=== PATIENT | female | born 1995 | race Caucasian/White ===

== ENCOUNTER 2019-01-26 15:56 | Emergency (ER) | payer SELFPAY ==
[2019-01-26 16:12] VITALS: BP 120/69
--- NOTE | 2019-01-26 17:10 | ER Document Report ---
ED Medical Screen (RME) - General Chief Complaint: STD Exposure Stated Complaint: POSSIBLE STD EXPOSURE Time Seen by Provider: 01/26/19 16:59 Mode of Arrival: Ambulatory Information source: Patient - HPI Patient complains to provider of: NEEDS STD TESTING Notes: 01/26/19 17:09 Patient here with complaints of needing STD testing. The patient states that she had sex for the first time in 5 years a week ago. And 2 days ago she had intercourse with a new partner. She states that the new partner developed a rash on his penis and she is now freaking out. She denies any rash or abnormal discharge. No fever. No abdominal pain. No nausea, vomiting, she states she is also having a panic attack because she is so stressed out about the whole situation. Exam Nontoxic, no distress. Lungs clear and equal throughout. Heart sounds normal. No abdominal tenderness on limited triage abdominal exam. Plan GC, chlamydia, wet prep, urine, urine . Patient will need pelvic exam. An initial examination was made on the patient as part of the triage process, and it was determined a more comprehensive evaluation was necessary. Initial labs were ordered and patient was transferred to another provider in the ED who assumed care and finished evaluation and plan. - Related Data Allergies/Adverse Reactions: Penicillins Allergy (Verified 01/26/19 16:01) Physical Exam - Vital signs Vitals: Temp Pulse Resp BP Pulse Ox 98.3 F 90 16 120/69 100 01/26/19 16:11 01/26/19 16:11 01/26/19 16:11 01/26/19 16:11 01/26/19 16:11 Course - Vital Signs Vital signs: Temp Pulse Resp BP Pulse Ox 98.3 F 90 16 120/69 100 01/26/19 16:11 01/26/19 16:11 01/26/19 16:11 01/26/19 16:11 01/26/19 16:11
[2019-01-26] MEDS ORDERED: HYDROXYZINE PAMOATE 25 MG CAPSULE PO ONE (17:11)
[2019-01-26 18:07] LABS: APPEARANCE,URINE SLIGHTLY-CLOUDY; BILIRUBIN,URINE NEGATIVE (NEGATIVE); COLOR,URINE YELLOW; GLUCOSE, URINE NEGATIVE (NEGATIVE); KETONES,URINE TRACE mg/dL (NEGATIVE); LEUKOCYTE ESTERASE,URINE NEGATIVE (NEGATIVE); NITRITE,URINE NEGATIVE (NEGATIVE); PROTEIN,URINE NEGATIVE (NEGATIVE); URINE SPECIFIC GRAVITY 1.027; UROBILINOGEN,URINE NEGATIVE mg/dL (<2.0)
[2019-01-26 19:17] LABS: CHLAM PCR NOT DETECTED (NOT DETECT); GON PCR NOT DETECTED (NOT DETECT)
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
== END 2019-01-26 21:33 | disposition home or self-care (01) ==
LOC: ER 15:56
DX: Z20.2 Contact with and (suspected) exposure to infections with a predominantly sexual mode of transmission (principal); Z88.0 Allergy status to penicillin
CPT/HCPCS: 81001; 81025; 87491; 87591; 99283

== ENCOUNTER 2019-09-21 14:09 | Emergency (ER) | payer OTHER ==
[2019-09-21] MEDS ORDERED: KETOROLAC TROMETHAMINE INJ/PF 30 MG/1 ML SDV IV ONE (15:46)
[2019-09-21] MEDS ORDERED: ONDANSETRON HCL INJ/PF 4 MG/2 ML SDV IV ONE (15:46)
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
[2019-09-21 16:21] LABS: ABSOLUTE LYMPHOCYTES (AUTO) 1.4 10^3/uL (0.5-4.7); ABSOLUTE MONOCYTES (AUTO) 0.6 10^3/uL (0.1-1.4); BASOPHILS % (AUTO) 0.6 % (0-2); EOSINOPHILS % (AUTO) 0.1 % (0-6); HEMATOCRIT 40.2 % (36.0-47.0); HEMOGLOBIN 14.1 g/dL (12.0-15.5); LYMPHOCYTES % (AUTO) 17.8 % (13-45); MEAN CORPUSCULAR HGB CONC 35.1 g/dL (32.0-36.0); MEAN CORPUSCULAR VOLUME 88 fl (80-97); PLATELET COUNT 298 10^3/uL (150-450); RED BLOOD COUNT 4.56 10^6/uL (3.72-5.28); RED CELL DISTRIBUTION WIDTH 12.8 % (11.5-14.0); SEGMENTED NEUTROPHILS % (AUTO) 74.5 % (42-78); TOTAL CELLS COUNTED % (AUTO) 100 %; WHITE BLOOD COUNT 8.1 10^3/uL (4.0-10.5)
[2019-09-21 16:38] LABS: ALKALINE PHOSPHATASE 57 U/L (38-126); ANION GAP 13 (5-19); ASPARTATE AMINO TRANSFERASE 20 U/L (14-36); BILIRUBIN,DIRECT 0.1 mg/dL (0.0-0.4); BILIRUBIN,TOTAL 1.4 mg/dL (0.2-1.3); BLOOD UREA NITROGEN 11 mg/dL (7-20); CALCIUM 9.8 mg/dL (8.4-10.2); CARBON DIOXIDE 26 mmol/L (22-30); CHLORIDE 103 mmol/L (98-107); GLUCOSE 90 mg/dL (75-110); POTASSIUM 3.9 mmol/L (3.6-5.0); TOTAL PROTEIN 8.2 g/dL (6.3-8.2)
[2019-09-21 16:43] LABS: APPEARANCE,URINE CLOUDY; BILIRUBIN,URINE NEGATIVE (NEGATIVE); GLUCOSE, URINE NEGATIVE (NEGATIVE); KETONES,URINE NEGATIVE (NEGATIVE); LEUKOCYTE ESTERASE,URINE MODERATE (NEGATIVE); NITRITE,URINE NEGATIVE (NEGATIVE); PROTEIN,URINE 100 mg/dL (NEGATIVE); URINE SPECIFIC GRAVITY 1.023; UROBILINOGEN,URINE NEGATIVE mg/dL (<2.0)
[2019-09-21] MEDS ORDERED: DIAZEPAM 5 MG TABLET PO ONE (16:45)
[2019-09-21 16:46] LABS: COLOR,URINE PINK
--- NOTE | 2019-09-21 20:00 | RADIOLOGY REPORT (SQ) ---
EXAM DESCRIPTION: U/S NON OB PEL TV W/DOPPLER COMPLETED DATE/TIME: 09/21/2019 7:22 pm REASON FOR STUDY: Pelvic pain, abnormal vaginal bleeding and dischar COMPARISON: None. TECHNIQUE: Dynamic and static grayscale images acquired of the pelvis via transvaginal approach and recorded on PACS. Additional selected color Doppler and spectral images recorded. LIMITATIONS: None. FINDINGS: UTERUS: Contour normal. No mass. ENDOMETRIAL STRIPE: No focal or generalized thickening. No masses. CERVIX: 4 mm nabothian cyst. RIGHT OVARY AND DOPPLER: Normal size. No worrisome masses. Normal arterial vascular flow without evid ence for torsion. LEFT OVARY AND DOPPLER: Normal size. No worrisome masses. Normal arterial vascular flow without evide nce for torsion. FREE FLUID: None noted. OTHER: No other significant finding. MEASUREMENTS: UTERUS: 7.5 x 3.9 x 5.2 cm ENDOMETRIAL STRIPE: 9 mm RIGHT OVARY: 2.5 x 2.3 x 1.7 cm LEFT OVARY: 3.1 x 2.7 x 1.7 cm IMPRESSION: No significant findings.Normal arterial vascular flow without evidence for torsion. TECHNICAL DOCUMENTATION: JOB ID: [id number]- All Rights Reserved Rev-02/03 Reading location - IP/workstation name: [email or web address]
[2019-09-21] MEDS ORDERED: CEFTRIAXONE 1 GM/D5W RTU 1 GM/50 ML RTUPB IV ONE (20:12)
[2019-09-21] MEDS ORDERED: BUTALB/ACETAMINOPHEN/CAFFEINE 1 TAB EACH PO ONE (20:13)
--- NOTE | 2019-09-21 20:16 | ER Document Report ---
ED GI/ - General Chief Complaint: Abdominal Pain Stated Complaint: ABDOMINAL PAIN/FEVER/POSSIBLE CYST Time Seen by Provider: 09/21/19 15:37 Primary Care Provider: [facility] [Provider Group] - Follow up as needed Mode of Arrival: Ambulatory Information source: Patient Notes: Patient presents stating that she was 16 days late on her menstrual cycle and then started her period yesterday. Patient states that she did have some dizziness earlier that has since resolved. Patient complains of lower pelvic tenderness with nausea and headache. Patient denies any vomiting. Patient states that she does have irregular menses. Patient denies any concerns about sexually transmitted infection TRAVEL OUTSIDE OF THE [place] IN LAST 30 DAYS: No - HPI Patient complains to provider of: Pelvic pain, Vaginal bleeding. No: , Vaginal discharge Onset: Yesterday Timing/Duration: Persistent Quality of pain: Achy Pain Level: 3 Vaginal bleeding (Compared to normal period): Similar Menstrual period history: denies: Sexual history: Active Associated symptoms: Nausea. denies: Fever, Urinary hesitancy, Urinary frequency, Urinary retention, Urinary urgency, Vaginal discharge, Vomiting Exacerbated by: Denies Relieved by: Denies Similar symptoms previously: No - Related Data Allergies/Adverse Reactions: Penicillins Allergy (Verified 09/21/19 15:36) Past Medical History - General Information source: Patient - Social History Smoking Status: Never Smoker Chew tobacco use (# tins/day): No Frequency of alcohol use: Occasional Drug Abuse: None Occupation: Retail Lives with: Spouse/Significant other Family History: Reviewed & Not Pertinent Patient has suicidal ideation: No Patient has homicidal ideation: No Pulmonary Medical History: Reports: Hx Pneumonia Neurological Medical History: Reports: Hx Migraine GI Medical History: Reports: Hx Endoscopy Musculoskeletal Medical History: Reports Hx Musculoskeletal Trauma Psychiatric Medical History: Reports: Hx Anxiety Traumatic Medical History: Reports: Hx Fractures - Thumb and nose Past Surgical History: Reports: Hx Appendectomy, Hx Thyroid Surgery - para thyroid Review of Systems - Review of Systems Constitutional: No symptoms reported. denies: Fever, Recent illness EENT: No symptoms reported Cardiovascular: No symptoms reported. denies: Chest pain Respiratory: No symptoms reported. denies: Cough, Short of breath Gastrointestinal: Abdominal pain, Nausea. denies: Vomiting Genitourinary: No symptoms reported Female Genitourinary: Vaginal bleeding. denies: Vaginal discharge Musculoskeletal: No symptoms reported. denies: Back pain Skin: No symptoms reported Hematologic/Lymphatic: No symptoms reported Neurological/Psychological: No symptoms reported Physical Exam - Vital signs Vitals: Temp Pulse Resp BP Pulse Ox 99.0 F 93 18 102/61 100 09/21/19 15:36 09/21/19 15:36 09/21/19 15:36 09/21/19 15:36 09/21/19 15:36 - General General appearance: Appears well, Alert In distress: None - HEENT Head: Normocephalic, Atraumatic Eyes: Normal Conjunctiva: Normal Nasal: Normal Mouth/Lips: Normal Mucous membranes: Normal Neck: Normal, Supple. No: Lymphadenopathy, Meningismus - Respiratory Respiratory status: No respiratory distress Chest status: Nontender Breath sounds: Normal. No: Rales, Rhonchi, Stridor, Wheezing Chest palpation: Normal - Cardiovascular Rhythm: Regular Heart sounds: S1 appreciated, S2 appreciated Murmur: No - Abdominal Inspection: Normal Distension: No distension Bowel sounds: Normal Tenderness: Tender - lower pelvic, suprapubic Organomegaly: No organomegaly - Back Back: Normal, Nontender. No: CVA tenderness - Extremities General upper extremity: Normal inspection, Normal strength General lower extremity: Normal inspection, Normal strength - Neurological Neuro grossly intact: Yes Cognition: Normal [place] Coma Scale Eye Opening: Spontaneous [place] Coma Scale Verbal: Oriented [place] Coma Scale Motor: Obeys Commands [place] Coma Scale Total: 15 - Psychological Associated symptoms: Normal affect, Normal mood - Skin Skin Temperature: Warm Skin Moisture: Dry Skin Color: Normal Course - Re-evaluation Re-evalutation: 09/21/19 20:14 Patient presents with lower pelvic tenderness. Ultrasound reviewed, no acute findings no concern for torsion or TOA. No concern for . With previous history of appendectomy, no concern concern for acute appendicitis. Patient denies any concerns about STI. Patient with UTI and dysmenorrhea at this time. Will treat for UTI with IV Rocephin and start patient on oral antibiotics. Patient also complains of headache pain. The patient presents with headache without signs of [employer] bleed, stroke, infection, or other serious etiology. The patient is neurologically intact. Given the extremely low risk of these diagnoses further testing and evaluation for these possibilities does not appear to be indicated at this time. The patient has been instructed to return if the symptoms worsen or change in any way. - Vital Signs Vital signs: Temp Pulse Resp BP Pulse Ox 98.2 F 82 16 103/66 100 09/21/19 21:16 09/21/19 21:16 09/21/19 21:16 09/21/19 21:16 09/21/19 21:16 - Laboratory Result Diagrams: 09/21/19 16:08 09/21/19 16:08 Laboratory results interpreted by me: 09/21/19 09/21/19 16:08 16:08 Total Bilirubin 1.4 H Urine Protein 100 H Urine Blood LARGE H Ur Leukocyte Esterase MODERATE H 09/22/19 00:11 Labs- Entire Visit 09/21/19 09/21/19 09/21/19 16:08 16:08 16:08 WBC 8.1 RBC 4.56 Hgb 14.1 Hct 40.2 MCV 88 MCH 31.0 MCHC 35.1 RDW 12.8 Plt Count 298 Lymph % (Auto) 17.8 [place] % (Auto) 7.0 Eos % (Auto) 0.1 Baso % (Auto) 0.6 Absolute Neuts (auto) 6.0 Absolute Lymphs (auto) 1.4 Absolute Monos (auto) 0.6 Absolute Eos (auto) 0.0 Absolute Basos (auto) 0.0 Seg Neutrophils % 74.5 Sodium 141.7 Potassium 3.9 Chloride 103 Carbon Dioxide 26 Anion Gap 13 BUN 11 Creatinine 0.56 Est GFR ( Amer) > 60 Est GFR (MDRD) Non-Af > 60 Glucose 90 Calcium 9.8 Total Bilirubin 1.4 H Direct Bilirubin 0.1 Neonat Total Bilirubin Not Reportable Neonat Direct Bilirubin Not Reportable Neonat Indirect Bili Not Reportable AST 20 ALT 12 Alkaline Phosphatase 57 Total Protein 8.2 Albumin 5.0 Urine Color PINK Urine Appearance CLOUDY Urine pH 6.0 Ur Specific [place] 1.023 Urine Protein 100 H Urine Glucose (UA) NEGATIVE Urine Ketones NEGATIVE Urine Blood LARGE H Urine Nitrite NEGATIVE Urine Bilirubin NEGATIVE Urine Urobilinogen NEGATIVE Ur Leukocyte Esterase MODERATE H Urine WBC (Auto) 51 Urine RBC (Auto) >182 Squamous Epi Cells Auto 8 Urine Mucus (Auto) MANY Urine Ascorbic Acid NEGATIVE Urine HCG, Qual NEGATIVE - Diagnostic Test Radiology reviewed: Reports reviewed Discharge - Discharge Clinical Impression: Dysmenorrhea UTI (urinary tract infection) Qualifiers: Urinary tract infection type: site unspecified Hematuria presence: with h ematuria Qualified Code(s): N39.0 - Urinary tract infection, site not specified Headache Qualifiers: Headache type: unspecified Headache chronicity pattern: unspecified pattern Intractability: not intractable Qualified Code(s): R51 - Headache Condition: Stable Disposition: HOME, SELF-CARE Instructions: Anti-Inflammatory Medication ([facility]), Cephalexin ([facility]), Dysmenorrhea ([facility]), Headache ([facility]), Urinary Tract Infection ([facility]) Additional Instructions: Return immediately for any new or worsening symptoms Followup with your primary care provider, call tomorrow to make a followup appointment Prescriptions: Cephalexin Monohydrate [Keflex 500 mg Capsule] 500 mg PO BID 5 Days capsule Naproxen [Naprosyn 250 Nmg Tablet] 1 tab PO BID #14 tablet Promethazine HCl [Phenergan 25 mg Tablet] 25 mg PO Q6H PRN #10 tablet PRN Reason: Forms: Return to Work Referrals: [facility] [Provider Group] - Follow up as needed
[2019-09-21 21:15] VITALS: BP 103/66
== END 2019-09-21 21:16 | disposition home or self-care (01) ==
LOC: ER 14:09
DX: N39.0 Urinary tract infection, site not specified (principal); N94.6 Dysmenorrhea, unspecified; R51 Headache; R10.9 Unspecified abdominal pain; R50.9 Fever, unspecified; R42 Dizziness and giddiness; R10.2 Pelvic and perineal pain; N93.9 Abnormal uterine and vaginal bleeding, unspecified; R11.0 Nausea
CPT/HCPCS: 99284; 96375; 96365; 36415; 87086; 85025; 81025; 80053; 81001; 76830; 93976; J3490; J1885; J2405; J0696

== ENCOUNTER 2019-09-26 05:20 | Emergency (ER) | payer OTHER ==
[2019-09-26 08:13] LABS: ABSOLUTE EOSINOPHILS # (AUTO) 0.1 10^3/uL (0.0-0.6); ABSOLUTE LYMPHOCYTES (AUTO) 2.1 10^3/uL (0.5-4.7); ABSOLUTE MONOCYTES (AUTO) 0.4 10^3/uL (0.1-1.4); BASOPHILS % (AUTO) 0.5 % (0-2); EOSINOPHILS % (AUTO) 1.1 % (0-6); HEMOGLOBIN 13.5 g/dL (12.0-15.5); LYMPHOCYTES % (AUTO) 36.9 % (13-45); MEAN CORPUSCULAR HEMOGLOBIN 30.5 pg (27.0-33.4); MEAN CORPUSCULAR HGB CONC 34.7 g/dL (32.0-36.0); MEAN CORPUSCULAR VOLUME 88 fl (80-97); PLATELET COUNT 278 10^3/uL (150-450); RED BLOOD COUNT 4.44 10^6/uL (3.72-5.28); RED CELL DISTRIBUTION WIDTH 12.8 % (11.5-14.0); SEGMENTED NEUTROPHILS % (AUTO) 53.5 % (42-78); TOTAL CELLS COUNTED % (AUTO) 100 %; WHITE BLOOD COUNT 5.6 10^3/uL (4.0-10.5)
[2019-09-26] MEDS ORDERED: FENTANYL CITRATE INJ/PF 100 MCG/2 ML AMPUL IV ONE (08:27)
[2019-09-26 08:29] LABS: ALBUMIN 4.3 g/dL (3.5-5.0); ALKALINE PHOSPHATASE 60 U/L (38-126); ANION GAP 9 (5-19); ASPARTATE AMINO TRANSFERASE 19 U/L (14-36); BILIRUBIN,DIRECT 0.2 mg/dL (0.0-0.4); BILIRUBIN,TOTAL 0.5 mg/dL (0.2-1.3); BLOOD UREA NITROGEN 16 mg/dL (7-20); CALCIUM 9.1 mg/dL (8.4-10.2); CARBON DIOXIDE 30 mmol/L (22-30); CHLORIDE 103 mmol/L (98-107); GLUCOSE 92 mg/dL (75-110); POTASSIUM 4.2 mmol/L (3.6-5.0); TOTAL PROTEIN 7.5 g/dL (6.3-8.2)
[2019-09-26] MEDS ORDERED: CEFTRIAXONE INJ 250 MG VIAL IM ONE (08:31)
[2019-09-26] MEDS ORDERED: AZITHROMYCIN 1 GM SUSP PACKET PO ONE (08:31)
[2019-09-26] MEDS ORDERED: LIDOCAINE 1% INJ-PF (10 MG/ML) 30 ML SDV NEB ONE (08:31)
--- NOTE | 2019-09-26 08:34 | ER Document Report ---
ED GI/ - General Chief Complaint: Lower Abdominal Pain Stated Complaint: POSSIBLE UTI Time Seen by Provider: 09/26/19 07:48 Information source: Patient Notes: HPI: 24-year-old female that presents today stating around 2 weeks ago she had sexual intercourse that was painful. She proceeded to have intercourse 2 more times over the week becoming progressively more painful. She had a low-grade fever 1 week ago with some pelvic pain and vomiting. She was seen here and evaluated for the possibility of urinary tract infection and started on Keflex. Pelvic examination was performed. Transvaginal ultrasound showed no obvious ovarian pathology. Patient does not have an appendix. She states over the last few days that the pain in the vaginal region has increased. She denies any discharge. She states it is extremely painful to pee but also to sit and to walk. She believes she may have lesions to the vaginal mucosa. ROS: See HPI All other review of systems reviewed and otherwise negative Reviewed vital signs and nursing note as charted by RN. PHYSICAL EXAM: CONSTITUTIONAL: Alert and oriented and responds appropriately to questions. Well-appearing; well-nourished HEAD: Normocephalic; atraumatic EYES: PERRL; Conjunctivae clear, sclerae non-icteric ENT: No intraoral lesions present NECK: Supple without meningismus; non-tender; no cervical lymphadenopathy, no masses CARD: Regular rate and rhythm; no murmurs; symmetric distal pulses RESP: Normal chest excursion without splinting or tachypnea; breath sounds clear and equal bilaterally ABD/GI: Normal bowel sounds; non-distended; soft, no tenderness to the abdominal examination to all 4 quadrants GI/: With highway traffic control technician present I did perform a pelvic examination. Patient has multiple lesions to the external mucosa of the vaginal wall. Patient will not allow me to perform a speculum examination given the pain. The external examina tion was performed after fentanyl had been given secondary to the pain BACK: The back appears normal and is non-tender to palpation EXT: Normal ROM in all joints; non-tender to palpation; no edema SKIN: No acute lesions noted NEURO: CN 2-12 intact; 5/5 bilateral upper and lower extremity strength with sensation intact to light touch PSYCH: The patient's mood and manner are appropriate. Grooming and personal hygiene are appropriate. TRAVEL OUTSIDE OF THE [place] IN LAST 30 DAYS: No - Related Data Allergies/Adverse Reactions: Penicillins Allergy (Verified 09/21/19 15:36) Home Medications: Keflex Past Medical History - Social History Smoking Status: Never Smoker Family History: Reviewed & Not Pertinent Patient has suicidal ideation: No Patient has homicidal ideation: No Pulmonary Medical History: Reports: Hx Pneumonia Neurological Medical History: Reports: Hx Migraine GI Medical History: Reports: Hx Endoscopy Musculoskeletal Medical History: Reports Hx Musculoskeletal Trauma Psychiatric Medical History: Reports: Hx Anxiety Traumatic Medical History: Reports: Hx Fractures - Thumb and nose Past Surgical History: Reports: Hx Appendectomy, Hx Thyroid Surgery - para thyroid Physical Exam - Vital signs Vitals: Temp Pulse Resp BP Pulse Ox 98.8 F 77 16 100/62 100 09/26/19 05:53 09/26/19 05:53 09/26/19 05:53 09/26/19 05:53 09/26/19 05:53 Course - Re-evaluation Re-evalutation: 09/26/19 08:34 Given the above history and physical, with ultrasound last week, with external lesions present, sexually active, I do believe that the patient most likely is suffering from a herpes outbreak. We will treat for herpes as well as chlamydia/gonorrhea and send a syphilis test. 09/26/19 08:49 Patient has refused internal vaginal examination. I will treat accordingly for chlamydia, gonorrhea, and herpes and send an RPR. - Vital Signs Vital signs: Temp Pulse Resp BP Pulse Ox 98.8 F 77 16 100/62 100 09/26/19 05:53 09/26/19 05:53 09/26/19 05:53 09/26/19 05:53 09/26/19 05:53 - Laboratory Result Diagrams: 09/26/19 07:47 09/26/19 07:47 Laboratory results interpreted by me: 09/26/19 07:47 Creatinine 0.51 L Discharge - Discharge Clinical Impression: Herpes simplex virus (HSV) infection of vagina Condition: Good Disposition: HOME, SELF-CARE Additional Instructions: Come back immediately for any increased pain, inability urinate, fevers or vomiting, or any other acute problems. Please take the medications as prescribed and please follow-up with [employer] as instructed and provided. Prescriptions: Doxycycline Hyclate 100 mg PO BID #20 capsule Valacyclovir HCl [Valacyclovir] 1,000 mg PO BID 10 Days #20 tablet Referrals: SANDRA FERGUSON MD [ACTIVE STAFF] - Follow up as needed
[2019-09-26] MEDS ORDERED: LIDOCAINE 1% INJ (10 MG/ML) 10 ML MDV INJ ONE (08:58)
[2019-09-26] MEDS ORDERED: LIDOCAINE 2% URO-JET 5 ML KIT MM ONE (09:13)
[2019-09-26 09:56] VITALS: BP 105/65
[2019-09-26] MEDS ORDERED: VALACYCLOVIR HCL 500 MG TABLET PO SCH (10:00)
[2019-09-26 10:35] LABS: CHLAM PCR NOT DETECTED (NOT DETECT)
[2019-10-02 10:18] LABS: HSV SOURCE VAGINAL
== END 2019-09-26 09:45 | disposition home or self-care (01) ==
LOC: ER 05:20
DX: A60.04 Herpesviral vulvovaginitis (principal); R10.30 Lower abdominal pain, unspecified; R50.9 Fever, unspecified
CPT/HCPCS: 99284; 96372; 96374; 96375; 87529; 36415; 83690; 85025; 86592; 80053; 87491; 87591; J3010; Q0144; J0696; J3490

== ENCOUNTER → 2020-03-13 | Outpatient (CLI) | payer OTHER ==
--- NOTE | 2020-03-13 12:59 | RADIOLOGY REPORT (SQ) ---
EXAM DESCRIPTION: U/S NON-OB PELVIS W/O DOP IMAGES COMPLETED DATE/TIME: 03/13/2020 11:56 am REASON FOR STUDY: PELVIC PAIN (R10.2) R10.2 PELVIC AND PERINEAL PAIN COMPARISON: 09/21/2019 TECHNIQUE: Dynamic and static grayscale images acquired of the pelvis via transabdominal approach an d recorded on PACS. Additional selected color Doppler and spectral images recorded. LIMITATIONS: None. FINDINGS: UTERUS: Contour normal. No mass. ENDOMETRIAL STRIPE: No focal or generalized thickening. No masses. CERVIX: 2.5 cm. No nabothian cysts. RIGHT OVARY AND DOPPLER: Normal size. No worrisome masses. There is a 2 cm cyst. Normal arterial va scular flow without evidence for torsion. LEFT OVARY AND DOPPLER: Ovary not seen FREE FLUID: None noted. OTHER: No other significant finding. MEASUREMENTS: UTERUS: 8.8 x 4.6 x 4 cm ENDOMETRIAL STRIPE: 13 mm. RIGHT OVARY: 4.2 x 3.2 x 2.1 cm. LEFT OVARY: Ovary not seen. IMPRESSION: Small cyst on the right ovary is almost certainly benign. No additional imaging is requ ired for this. No acute findings. TECHNICAL DOCUMENTATION: JOB ID: [id number] 2010 [employer]- All Rights Reserved Rev-02/03 Reading location - IP/workstation name: [email or web address]
== END ==
LOC: RAD 09:59
PROVIDERS: ATTEND Nurse Practitioner Family
DX: N83.291 Other ovarian cyst, right side (principal); R10.2 Pelvic and perineal pain
CPT/HCPCS: 76856